=== PATIENT | female | born 1945 | race Caucasian/White ===

== ENCOUNTER → 2021-04-06 15:04 | Outpatient (BNVA) | payer MEDICARE, OTHER, SELFPAY | PROVIDERS: Family Provider Nurse Practitioner Family; PCP Nurse Practitioner Family; Visit Provider Obstetrics & Gynecology | DX: R30.0 Dysuria (principal); B37.3 Candidiasis of vulva and vagina; N95.1 Menopausal and female climacteric states | CPT/HCPCS: 81000 ==